=== PATIENT | female | born 1990 | race Caucasian/White ===

== ENCOUNTER 2017-08-26 11:58 | Emergency (ER) | payer SELFPAY ==
[2017-08-26 12:08] VITALS: BP 126/86
[2017-08-26] MEDS ORDERED: IBUPROFEN 600 MG TABLET PO ONE (12:31)
--- NOTE | 2017-08-26 12:59 | RADIOLOGY REPORT (SQ) ---
EXAM DESCRIPTION: HAND LEFT 3 VIEWS COMPLETED DATE/TIME: 08/26/2017 12:49 pm REASON FOR STUDY: jammed thumb, pain swelling fell off [employer] board COMPARISON: None. EXAM PARAMETERS: NUMBER OF VIEWS: Three views. TECHNIQUE: AP, lateral and oblique radiographic images acquired of the left hand. LIMITATIONS: None. FINDINGS: MINERALIZATION: Normal. BONES: No acute fracture or dislocation. No worrisome bone lesions. JOINTS: No effusions. SOFT TISSUES: No soft tissue swelling. No foreign body. OTHER: No other significant finding. IMPRESSION: NEGATIVE STUDY OF THE LEFT HAND. NO RADIOGRAPHIC EVIDENCE OF ACUTE INJURY. TECHNICAL DOCUMENTATION: JOB ID: [id number] [employer]- All Rights Reserved
--- NOTE | 2017-08-26 13:11 | ER Document Report ---
ED Hand/Wrist Injury - General Mode of Arrival: Ambulatory Information source: Patient TRAVEL OUTSIDE OF THE [place] IN LAST 30 DAYS: No - HPI Injury to: Hand, Thumb Onset: This morning Where: Home, Outdoors Timing: Still present Quality of pain: Achy, Pressure, Sharp Severity: Moderate Pain Level: 4 Context: Fall <EDISON JACOBO - Last Filed: 08/26/17 13:34> <MAKEDA NORIEGA - Last Filed: 08/26/17 13:43> - General Chief Complaint: Thumb Injury Stated Complaint: LEFT THUMB INJURY Time Seen by Provider: 08/26/17 12:23 Notes: 26-year-old female presented to ED for complaint of jammed thumb this morning while playing in his nose. She states she was being pulled on a buggy board when she wiped out jamming her thumb. Left thumb is swollen bruised positive snuffbox tenderness. Reduced movement to the thumb due to pain. (EDISON JACOBO) - Related Data Allergies/Adverse Reactions: ciprofloxacin [From Cipro] Allergy (Verified 08/26/17 12:01) Sulfa (Sulfonamide Antibiotics) Allergy (Verified 08/26/17 12:01) Past Medical History - General Information source: Patient - Social History Smoking Status: Never Smoker Cigarette use (# per day): No Chew tobacco use (# tins/day): No Smoking Education Provided: No Frequency of alcohol use: Rare Drug Abuse: None Lives with: Friend Family History: Arthritis, CAD, Hyperlipidemia, Hypertension. denies: COPD, CVA , DM, Malignancy, Thyroid Disfunction Patient has suicidal ideation: No Patient has homicidal ideation: No - Past Medical History Cardiac Medical History: Reports: None Pulmonary Medical History: Reports: None EENT Medical History: Reports: None Neurological Medical History: Reports: None Endocrine Medical History: Reports: None Renal/ Medical History: Reports: Hx Kidney Stones Malignancy Medical History: Reports: None GI Medical History: Reports: None Musculoskeltal Medical History: Reports Hx Musculoskeletal Trauma Skin Medical History: Reports None Psychiatric Medical History: Reports: None Traumatic Medical History: Reports: None Infectious Medical History: Reports: None Surgical Hx: Negative Past Surgical History: Reports: None <EDISON JACOBO - Last Filed: 08/26/17 13:34> Review of Systems - Review of Systems Constitutional: No symptoms reported EENT: No symptoms reported Cardiovascular: No symptoms reported Respiratory: No symptoms reported Gastrointestinal: No symptoms reported Genitourinary: No symptoms reported Female Genitourinary: No symptoms reported Musculoskeletal: Other - Left hand and wrist tenderness swelling bruising and pain. Snuffbox tenderness Skin: Change in color Hematologic/Lymphatic: No symptoms reported Neurological/Psychological: No symptoms reported <EDISON JACOBO - Last Filed: 08/26/17 13:34> Physical Exam - Vital signs Interpretation: Normal - General General appearance: Appears well, Alert - HEENT Head: Normocephalic, Atraumatic Eyes: Normal Pupils: PERRL - Respiratory Respiratory status: No respiratory distress Chest status: Nontender Breath sounds: Normal Chest palpation: Normal - Cardiovascular Rhythm: Regular Heart sounds: Normal auscultation Murmur: No - Abdominal Inspection: Normal Distension: No distension Bowel sounds: Normal Tenderness: Nontender Organomegaly: No organomegaly - Back Back: Normal, Nontender - Extremities General upper extremity: Normal color, Normal temperature General lower extremity: Normal inspection, Nontender, Normal color, Normal ROM , Normal temperature, Normal weight bearing. No: Amanda's sign Wrist: Tender, Axial load of thumb pain, Ecchymosis, Limited ROM Hand: Tender, No evidence of human bite, No evidence of FB, Swelling, Other - Scaphoid tenderness - Neurological Neuro grossly intact: Yes Cognition: Normal Orientation: AAOx4 Kate Coma Scale Eye Opening: Spontaneous [place] Coma Scale Verbal: Oriented Kate Coma Scale Motor: Obeys Commands Kate Coma Scale Total: 15 Speech: Normal Motor strength normal: LUE, RUE, LLE, RLE Sensory: Normal - Psychological Associated symptoms: Normal affect, Normal mood - Skin Skin Temperature: Warm Skin Moisture: Dry Skin Color: Normal <EDISON JACOBO - Last Filed: 08/26/17 13:34> - Vital signs Vitals: Temp Pulse Resp BP Pulse Ox 98.2 F 118 H 12 126/86 H 100 08/26/17 12:07 08/26/17 12:07 08/26/17 12:07 08/26/17 12:07 08/26/17 12:07 Course - Diagnostic Test Radiology reviewed: Image reviewed, Reports reviewed <EDISON JACOBO - Last Filed: 08/26/17 13:34> <MAKEDA NORIEGA P - Last Filed: 08/26/17 13:43> - Re-evaluation Re-evalutation: 08/26/17 13:[address] Noriega due to x-ray being negative when I was sure there was a injury. He came and examined the patient stated that she has a possible scaphoid fracture on the left hand and that she would need a thumb spica splint and discharged home with pain medication and consult to follow-up with orthopedics with it then doing a repeat x-ray within a week. Patient and family were instructed to follow-up with orthopedics today by telephone to schedule a follow-up appointment with orthopedics for re-x-ray and reexamination of her left hand. Thumb spica splint applied good cap refill. Patient was discharged home with instructions for elevation ice use of sling and a Kunkle dispense pack and instructions to use ibuprofen. Patient and family verbalized understanding of all instructions. (EDISON JACOBO) - Vital Signs Vital signs: Temp Pulse Resp BP Pulse Ox 98.2 F 118 H 12 126/86 H 100 08/26/17 12:07 08/26/17 12:07 08/26/17 12:07 08/26/17 12:07 08/26/17 12:07 Procedures - Immobilization Left Hand Time completed: 13:34 Immobilizer type: Thumb spica Performed by: PCT Post-Proc Neuro Vasc Exam: Normal Alignment checked and good: Yes <EDISON JACOBO - Last Filed: 08/26/17 13:34> Discharge <EDISON JACOBO - Last Filed: 08/26/17 13:34> <MAKEDA NORIEGA P - Last Filed: 08/26/17 13:43> - Discharge Clinical Impression: possible scaphoid fracture left Fall Qualifiers: Encounter type: initial encounter Qualified Code(s): W19.XXXA - Unspecified fall, initial encounter Condition: Stable Disposition: HOME, SELF-CARE Additional Instructions: You have a possible scaphoid fracture to the left hand. Very important that you leave your splint in place and follow-up with orthopedics. Keep hand elevated and iced as instructed below. Please call today to schedule a follow-up orthopedic appointment. SPLINT PRECAUTIONS: A splint has been placed. This will protect the area while healing begins. Your problem does NOT normally require a cast. It MUST, however, be held still! Keep the splint on ALL THE TIME until instructed to remove it by the doctor. As you begin to use the area, be careful. You shouldn't do anything which causes discomfort -- you may disturb the injury even with the splint in place. After the initial period of rest and elevation, if splint does not prevent pain when you move, come back. You may require placement of a different splint , or a cast. If there is unexpected severe pain, or numbness, discoloration, or swelling beyond the splint, you should return at once. If you feel that the splint has broken or become loose, come back. ICE & ELEVATION: Apply ice packs frequently against the painful area. Many different schedules are recommended, such as "20 minutes on, 20 minutes off" or "one hour ice, two hours rest." If you need to work, you may need to go longer between ice treatments. You should plan to have the area ice packed AT LEAST one- fourth of the time. The ice should be applied over the wrap, tape, or splint, or over a layer of cloth -- not directly against the skin. Some ice bags have a built-in cloth and can be put directly on the skin. Your injured part should be elevated as much as possible over the next 48 hours. Try to keep the injury above the level of the heart. Avoid use of the injured area. Elevation and rest will decrease the swelling. USE OF PMVI-DKB-FBVAHAL IBUPROFEN: Ibuprofen (Advil, Nuprin, Medipren, Motrin IB) is a medication for fever and pain control. In addition, it has anti- inflammatory effects which may be beneficial, especially in the treatment of injuries. It's best to take ibuprofen with food. Persons with ulcer disease or allergy to aspirin should notify their physician of this before taking ibuprofen. Ibuprofen can be given every four to six hours, for a total of four doses daily. Age Pain or fever dose Antiinflammatory dose 6-8 yr 200 mg (1 tab) 200 mg (1 tab) 9-11 yr 200 mg (1 tab) 200-400 mg (1-2 tab) 11-14 yr 200-400 mg (1-2 tab) 400 mg (2 tab) 15-adult 400 mg (2 tab) 600 mg (3 tab) ORAL NARCOTIC MEDICATION: You have been given a Kunkle dispense pack for pain control. This medication is a narcotic. It's best taken with food, as nausea can result if taken on an empty stomach. Don't operate machinery or drive within six hours of taking this medication. Do not combine this medicine with alcohol, or with any medication which can cause sedation (such as cold tablets or sleeping pills) unless you get permission from the physician. Narcotics tend to cause constipation. If possible, drink plenty of fluids and eat a diet high in fiber and fruits. Please be aware that prescription narcotics also have the potential for abuse. People become addicted to these medications because of the general sense of wellbeing that they induce. This feeling along with a significant reduction in tension, anxiety, and aggression provides a stimulating seductive quality to these drugs. Once your pain is under control, we encourage you to discard your unused narcotics. FOLLOW-UP CARE: If you have been referred to a physician for follow-up care, call the physician s office for an appointment as you were instructed or within the next two days. If you experience worsening or a significant change in your symptoms, notify the physician immediately or return to the Emergency Department at any time for re-evaluation. Forms: Return to Work Referrals: [facility] [place]/26/[place] (Call today to schedule a follow-up appointment you will need this hand re-x-rayed in a week) Cosign for MLP Exam - Cosign -: I personally evaluated and examined the patient in conjunction with the MLP and agree with the assessment, treatment plan and disposition. Cosign for MLP: Dr. Makeda Noriega DO <MAKEDA NORIEGA P - Last Filed: 08/26/17 13:43>
[2017-08-26] MEDS ORDERED: HYDROCODONE/ACETAMINOPHEN 5-325 MG (6 TAB/ER DISP) PO PRN (13:33)
== END 2017-08-26 13:35 | disposition home or self-care (01) ==
LOC: ER 11:58
DX: S60.012A Contusion of left thumb without damage to nail, initial encounter (principal); S60.212A Contusion of left wrist, initial encounter; W19.XXXA Unspecified fall, initial encounter; Y93.29 Activity, other involving ice and snow; Y92.009 Unspecified place in unspecified non-institutional (private) residence as the place of occurrence of the external cause; Z88.1 Allergy status to other antibiotic agents; Z88.2 Allergy status to sulfonamides
CPT/HCPCS: 99283